=== PATIENT | female | born 1955 | race Caucasian/White ===

== ENCOUNTER 2024-08-07 15:38 | Emergency (ER) | payer MEDICARE, OTHER ==
[2024-08-07] MEDS ORDERED: predniSONE 20 MG Tab PO ONE (16:38)
== END 2024-08-07 16:55 | disposition home or self-care (01) ==
LOC: JD.ED 15:38
DX: G51.0 Bell's palsy (principal); Z79.899 Other long term (current) drug therapy
CPT/HCPCS: 70450; 70450-26; 82947; 99283; 99284